=== PATIENT | female | born 1970 | race Caucasian/White ===

== ENCOUNTER 2016-06-17 13:38 | Observation (INO) ==
--- NOTE | 2016-06-17 14:41 | ED.PDOC ---
General ED Provider: Dr. NATALYA LOPEZ JR Chief Complaint: Chest Pain Stated Complaint: states she had 2 episodes today where she had dull midsternal chest pain lasting a few seconds has been out of blood pressure medicine (ziac 2.5)for 1 month. [ End ]98.6 77 18 98% 189/124 1030 2 325mg aspirin Time Seen by Physician: 14:36 Mode of Arrival: Walk-In Information Source: Patient Exam Limitations: No limitations Primary Care Provider: RANULFO GROSS Nursing and Triage Documentation Reviewed and Agree: No Review of Systems - Review Of Systems Constitutional: Reports: Malaise Cardiac: Reports: Chest pain Neurological: Reports: Anxiety All Other Systems: Other Past Medical History - Past Medical History Endocrine: Reports: None Cardiovascular: Reports: Hypertension, Other (MURMUR MILD MR PER PATIENT ON ECHO ) Respiratory: Reports: None Hematological: Reports: None Gastrointestinal: Reports: None Genitourinary: Reports: None Neuro/Psych: Reports: None Musculoskeletal: Reports: None Cancer: Reports: None Last Menstrual Period: now - Surgical History General Surgical History: Reports: Tubal ligation, Cholecystectomy - Family History Family History: Reports: Heart (father hx cabg alive at 71) - Social History Smoking Status: Current every day smoker, Light tobacco smoker Hx Substance Use: No Alcohol Screening: None Physical Exam - Physical Exam Appearance: Well-appearing, Obese Eyes: WINDY, EOMI, Conjunctiva clear ENT: Ears normal, Nose normal, Oropharynx normal Neck: Supple Respiratory: Airway patent, Breath sounds clear, Breath sounds equal, Respirations nonlabored Cardiovascular: RRR, Pulses normal, No rub, No murmur GI/: Soft, Nontender, No masses, Bowel sounds normal, No Organomegaly Musculoskeletal: Normal strength, ROM intact, No edema, No calf tenderness Skin: Warm, Dry, Normal color Neurological: Sensation intact, Motor intact, Reflexes intact, Cranial nerves intact, Alert, Oriented Psychiatric: Affect appropriate, Mood appropriate Interpretation - Radiology Interpretation Radiology Interpretation By: Radiologist Radiology Results: No acute changes Exam Interpreted: CXR - EKG Interpretation Time of EKG #1: 13:50 Rate: Normal Rhythm: Sinus ST Segment: Normal Physician Notification - Case Discussed Physician Notified: CORRINA- SEND TO [facility] Time of Notification: 16:39 (1842 WILL ADMIT IF NOT TRANSFERRED) Critical Care Note - Critical Care Note Total Time (mins): 5 Course - Course Hematology/Chemistry: 06/17/16 14:00 06/17/16 14:00 Orders, Labs, Meds: Lab Review 06/17/16 14:00 WBC 9.70 RBC 4.48 Hgb 13.9 Hct 41.7 MCV 93.1 MCH 31.0 MCHC 33.3 RDW Coeff of Ran 13.6 Plt Count 344 Neutrophils % (Manual) 53.0 Lymphocytes % (Manual) 35.0 Monocytes % (Manual) 12.0 H D-Dimer 0.37 Sodium 139 Potassium 3.9 Chloride 105 Carbon Dioxide 24 Anion Gap 13.9 BUN 18 Creatinine 0.83 Estimated GFR (MDRD) 74.00 BUN/Creatinine Ratio 21.68 Glucose 91 Calcium 9.5 Total Bilirubin 0.34 AST 20 ALT 19 Alkaline Phosphatase 89 Total Creatine Kinase 151 CK-MB (CK-2) 1.9 CK-MB (CK-2) % 1.29931 Troponin I 0.0140 B-Natriuretic Peptide 11 Total Protein 7.6 Albumin 4.0 Globulin 3.6 Albumin/Globulin Ratio 1.11 Orders Category Date Time Status EKG-(ED ONLY) Stat CARDIO 06/17/16 14:08 Completed IV [ED IV/MEDIPORT/POWERPORT] .ONCE EMERGENCY 06/17/16 14:27 Active B-TYPE NATRIURETIC PEPTIDE Stat LAB 06/17/16 14:00 Completed CBC W/ AUTO DIFF Stat LAB 06/17/16 14:00 Completed COMPREHENSIVE METABOLIC PANEL Stat LAB 06/17/16 14:00 Completed CREATINE KINASE Stat LAB 06/17/16 14:00 Completed D-DIMER Stat LAB 06/17/16 14:00 Completed MANUAL DIFFERENTIAL Stat LAB 06/17/16 14:00 Completed TROPONIN I Stat LAB 06/17/16 14:00 Completed 0.9 % Sodium Chloride [Saline Flush] MEDS 06/17/16 14:27 Active 1 syr IVF PRN PRN CHEST, 1V AP ONLY Stat RADS 06/17/16 14:25 Completed Medications Generic Name Dose Route Start Last Admin Trade Name Freq PRN Reason Stop Dose Admin Acetaminophen 650 mg 06/17/16 17:15 Tylenol PO Q4H PRN Mild Pain Bisoprolol Fumarate/HCTZ 1 tab 06/17/16 17:30 Ziac 2.5-6.25 Mg PO DAILY JORDYN Sodium Chloride 1,000 mls @ 75 mls/hr 06/17/16 17:30 06/17/16 18:19 Sodium Chloride IV 75 mls/hr .[id number] JORDYN Administration Sodium Chloride 1 syr 06/17/16 14:27 Saline Flush IVF PRN PRN To flush IV Vital Signs: Temp Pulse Resp BP Pulse Ox 06/17/16 13:44 98.6 F 77 18 189/124 H 98 MARILUZ Risk Score MARILUZ Risk Score: Risk Score Odds of by 30D 0 0.1 (0.1-0.2) 1 0.3 (0.2-0.3) 2 0.4 (0.3-0.5) 3 0.7 (0.6-0.9) 4 1.2 (1.0-1.5) 5 2.2 (1.9-2.6) 6 3.0 (2.5-3.6) 7 4.8 (3.8-6.1) Departure - Departure Time of Disposition: 17:00 Disposition: ADMITTED INPATIENT Discharge Problem: Chest pain Condition: Stable Pt referred to PMD for follow-up: No (ADMIT DR HOUSER(PMD AT [facility]- HIGH VOLUME OF PATIENTS) Allergies/Adverse Reactions: Allergies No Known Allergies Allergy (Verified 06/17/16 13:49) Home Medications: Ambulatory Orders 1 [No Reported Medications] 06/17/16
[2016-06-17 14:43] LABS: HEMATOCRIT 41.7 % (37.0-47.0); HEMOGLOBIN 13.9 g/dl (12.0-16.0); MEAN CORPUSCULAR HGB CONC 33.3 (31.8-35.4); MEAN CORPUSCULAR VOLUME 93.1 fl (81.0-99.0); PLATELET COUNT 344 10^3/uL (140-440); RED BLOOD COUNT 4.48 10^6/ul (4.20-5.40)
[2016-06-17 14:44] LABS: ANISOCYTOSIS NOT PRESENT (NOT PRESENT)
--- NOTE | 2016-06-17 14:55 | DI ---
EXAM: CHEST FRONTAL VIEW HISTORY: Chest pain. COMPARISON: 02/19/2012 FINDINGS: Heart size within normal limits. There is at least mild aortic atherosclerosis. There ar e scattered calcifications suggesting old granulomatous disease. Mild hyperinflation. Lucency of t he lung zones may represent emphysema. No consolidated pneumonia or vascular congestion. No pneumo thorax or pleural fluid. The bones appear intact. IMPRESSION: Cannot exclude chronic obstructive pulmonary disease. Correlate clinically. No acute i nfiltrates identified. There is atherosclerotic disease.]
[2016-06-17 15:11] LABS: ALBUMIN/GLOBULIN RATIO 1.11; ANION GAP 13.9; BILIRUBIN,TOTAL 0.34 mg/dL (0.00-1.20); BUN/CREATININE RATIO 21.68; CALCIUM 9.5 mg/dL (8.2-10.2); CREATININE 0.83 mg/dL (0.60-1.30); POTASSIUM 3.9 mmol/L (3.5-5.10); TOTAL PROTEIN 7.6 g/dL (6.4-8.2); TROPONIN I 0.014 ng/ml (0.0000-0.4000)
[2016-06-17 15:13] LABS: CREATINE KINASE MB 1.9 ng/ml (0.0-3.6)
[2016-06-17] MEDS ORDERED: TYLENOL PO PRN (17:15)
[2016-06-17] MEDS ORDERED: ZIAC 2.5-6.25 MG PO SCH (17:30)
[2016-06-17] MEDS: SODIUM CHLORIDE 1,000 ML IV SCH (18:19)
[2016-06-17 20:25] VITALS: BMI 40.7
[2016-06-17] MEDS: ASPIRIN EC PO SCH (22:07)
[2016-06-17 23:30] LABS: TROPONIN I 0.012 ng/ml (0.0000-0.4000)
[2016-06-18] MEDS: SODIUM CHLORIDE 1,000 ML IV SCH (06:46)
[2016-06-18 07:18] LABS: BASOPHILS % (AUTO) 0.3 % (0.0-3.0); EOSINOPHILS # (AUTO) 0.2 K/ul (0.0-0.7); EOSINOPHILS % (AUTO) 2.6 % (0.0-7.0); HEMATOCRIT 39.9 % (37.0-47.0); HEMOGLOBIN 13.4 g/dl (12.0-16.0); IMMATURE GRANULOCYTE % (AUTO) 0.4 % (0.0-5.0); LYMPHOCYTES % (AUTO) 27.6 (10.0-50.0); MEAN CORPUSCULAR HEMOGLOBIN 30.9 pg (27.0-31.0); MEAN CORPUSCULAR HGB CONC 33.6 (31.8-35.4); MEAN CORPUSCULAR VOLUME 91.9 fl (81.0-99.0); MONOCYTES # (AUTO) 0.6 K/uL (0.4-2.0); NEUTROPHILS # (AUTO) 4.4 K/ul (2.0-6.9); NEUTROPHILS % (AUTO) 61.1; PLATELET COUNT 288 10^3/uL (140-440); RED BLOOD COUNT 4.34 10^6/ul (4.20-5.40); WHITE BLOOD COUNT 7.22 K/ul (4.6-10.2)
[2016-06-18 08:08] LABS: ALBUMIN 3.4 g/dL (3.4-5.0); ALBUMIN/GLOBULIN RATIO 1.17; ANION GAP 13.2; BILIRUBIN,TOTAL 0.58 mg/dL (0.00-1.20); BUN/CREATININE RATIO 17.74; CALCIUM 8.8 mg/dL (8.2-10.2); CHOL/HDL RATIO 3.6 (4.5-5.5); CREATININE 0.62 mg/dL (0.60-1.30); POTASSIUM 4.2 mmol/L (3.5-5.10); TOTAL PROTEIN 6.3 g/dL (6.4-8.2); TROPONIN I 0.016 ng/ml (0.0000-0.4000)
[2016-06-18] MEDS: ASPIRIN EC PO SCH (08:17)
[2016-06-18 14:00] VITALS: BP 110/64; TEMP 97.5
[2016-06-18] MEDS ORDERED: FLUARIX QUAD 2016-2017 SYRINGE IM ONE (14:38)
--- NOTE | 2016-06-18 15:51 | SSS ---
REASON FOR ADMISSION: Midsternal dull, poking pain. SOURCE OF HISTORY: Patient, reliability good. HISTORY OF PRESENT ILLNESS: The patient claimed to have experienced a dull poking pain in the midsternal area about 9:30am in the morning with very short duration and happened only once. The patient had taken two Joshua aspirin after that. She also then had another episode of the same still a very short duration but the dull poking discomfort was repetitive a maximum of five times. This symptoms however was not accompanied by nausea, anorexia, diaphoresis and weakness. The patient was concerned about the problem and presented at the emergency room. The patient workup at the emergency room was unremarkable but emergency room physician felt that she needed to be admitted to the hospital for further observation and testing to rule out any coronary artery disease. The patient at the emergency room was noted to have a blood pressure 189/124 and pulse rate 98. The patient was given a Ziac 2.5-6.25mg at 5:30pm. She also received Tylenol at 5:15pm. PAST HISTORY: The patient had experienced migraines intermittently in the last two years and there some stress since November 2015 and that has more or less dissipated. The patient had tubal ligation, laparoscopic cholecystectomy, Hypertension and heart murmurs. PERSONAL/FAMILY HISTORY/SOCIAL HISTORY: Family history the sister had breast carcinoma, brother had hypertension, father had myocardial infarction x2 and also did undergo cardiac bypass surgery x2. History of diabetes in the maternal side as well as CVA, malignancy, heart disease and thyroid problems. The patient is but she claimed to have problems and now lives alone and recently bought a house. 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 She smokes cigarettes although she claims that she would stop and she had stopped before but regained the habit when she was under stress. She does not drink any alcohol beverages. 4 Para 2, miscarriages 2. PHYSICAL EXAMINATION: GENERAL/APPEARANCE/VITALS: The patient is a 45 year old female admitted to the hospital because of dull poking chest discomfort two hours before admission/ Temperature 97.9, pulse 64, blood pressure 120/86 this was previously 189/124 at the emergency room. This patient received Ziac one dose. Respiratory rate 18 and oxygen saturation 98% at room air. She is 5'5, 245 pounds, BMI 40.8. HEENT: Head is unremarkable. Face is symmetrical and equal with no facial weakness and no tenderness in the frontal maxillary sinus areas to palpation under pressure. Eyes and pupils are equal and reactive to light about 3mm in size. Conjunctive not pale sclarea not icteric. Mouth is unremarkable. Throat no inflammation, no tumors and no exudates. NECK: No masses, no tenderness and no bruit. CHEST: Symmetrical and equal with good expansion. Breast not examined. The patient goes to the clinic in [place]. CVS: Audible and regular with good tones, no murmurs. The patient claimed that she has a murmur however I could be appreciate the murmurs. RS: Breath sounds are heard in both sides, no rales or wheezing. ABDOMEN: Slightly protuberant, pedalis, soft with no remarkable tenderness, no guarding, bowel sounds are active and no masses palpable. EXTERNAL GENITALIA: No examined. Rectal not done. LOWER EXTREMITIES: Symmetrical and equal with no significant pedal edema. Pedal pulses are present in both feet. UPPER EXTREMITIES: Symmetrical and equal. ALLERGIES: No known drug allergies. REVIEW OF SYSTEMS: CONSTITUTIONAL: The patient is alert and oriented and no fever, no chills and no fatigue. SNOUT PULLER: The patient has history of migraine headaches but does not have any at this time. No history of seizures or ataxia. VISUAL: Denies any double vision or blurred vision or transient loss of vision. AUDITORY: Hearing is good. Denies any tinnitus, pain or drainage. RESPIRATORY: Denies any significant cough and no hemoptysis. No shortness of breath CARDIOVASCULAR: Pain in the midsternal area, dull, poking pain very short duration and not accompanied by any other symptoms. GI: Denies any abdominal pain, nausea, anorexia and diarrhea. : Denies any pain, frequency or urgency of urination. MUSCULOSKELETAL: No significant joint pains. ENDOCRINE: Negative INTEGUMENT: Denies any rash, pleuritis. HEMATOLOGY: Denies any prolonged bleeding PSYCHIATRIC: The patient is slightly anxious otherwise responses are normal. MEDICATIONS: None This patient had been on Ziac but had not taken the medication for some time, 2.5-6.25. LABS/EKG'S/X-RAY/ECHO/ABG: The patient while in the hospital remained alert and oriented with no recurrence of the chest pain. The vital signs remained stable and the blood pressure remained normal. The patient's work up during this hospitalization consisted of chest x-ray, no acute infiltrates noted, there is atherosclerotic disease. Stress test negative for ischemia. Echocardiogram normal. Labs: CBC essentially the same and normal. D-dimer normal 0.37, Chemistries normal, CK plus MB and Troponin normal and remained normal on repeat. BNP 11 normal. Lipid panel normal, TSH normal 1.040. ASSESSMENT: 1. Midsternal chest pain, per duration atypical- non cardiac 2. Hypertension now controlled 3. Markedly elevated BMI 4. Chronic tobacco use and abuse, persistent 5. History of chronic and acute situational stress syndrome The patient was examined just before discharge and she is alert,oriented times 4 not dyspneic or tachypneic and cheerful. She had not had any pain during the night and no pain during the course of the exercise. Lungs are clear to auscultation in both sides. Heart is audible and regular with good tones. Neck no masses and no bruit. Abdomen is soft with no remarkable tenderness, no guarding, bowel sounds are active and no masses palpable. Lower extremities no tenderness in the calf muscles. Upper extremities are symmetrical and equal. Vital signs at 1:59pm showed a temperature of 97.5, pulse 74, blood pressure 110 /64, respiratory rate 20 and oxygen saturation is 97 at room air. RECOMMENDATIONS/PLAN: The patient is discharged today and instructed to resume Ziac. She was further instructed to see Dr. Guerin for followup. The patient was advised to slowly increase exercise such as walking. GOOD
--- NOTE | 2016-06-19 14:03 | CONS ---
DATE OF CONSULTATION: 06/18/16 REASON FOR CONSULTATION: Chest pain. HISTORY OF PRESENT ILLNESS: This is a 45-year-old female who experienced two episodes yesterday with "dull" fleeting mid-sternal pain that lasted a few seconds, went away and returned for a few seconds. No nausea. BP elevated at 189/124 on arrival to ER. No diaphoresis or radiation of pain. No shortness of air. She did take ASA 650 mg. REVIEW OF SYSTEMS: CONSTITUTIONAL: Fatigue. No night sweats. No fever or chills. HEENT: Eyes: No visual changes. No eye pain. No eye discharge. ENT: No runny nose. No epistaxis. No sinus pain. No sore throat. No odynophagia. No ear pain. No congestion. RESPIRATORY: Cough for the last 1 to 2 weeks, yellow-brown mucus. No hemoptysis. CARDIOVASCULAR: No angina symptoms. No CHF symptoms. No exertional discomfort. No PND, no orthopnea. No palpitations. Chest pain is atypical, center of the chest. GASTROINTESTINAL: No abdominal pain. No nausea or vomiting. No diarrhea or constipation. No hematemesis. No hematochezia. No melena. GENITOURINARY: No urgency. No frequency. No dysuria. No hematuria. No obstructive symptoms. No discharge. No pain. No significant abnormal bleeding. MUSCULOSKELETAL: No musculoskeletal pain. No joint swelling. NEUROLOGICAL: No headache. No neck pain. No syncope. No seizures. No dizziness. PSYCHIATRIC: Not anxious. No depression. No suicidal thoughts. No homicidal thoughts. The patient states she has had increased stress the last 6 months. SKIN: Warm and dry. ENDOCRINE: No unexplained weight loss. No weight gain. HEMATOLOGIC/LYMPHATIC: No anemia. No purpura. No petechiae. No prolonged or excessive bleeding. No palpable lymph nodes. MEDICATIONS: No current medications. Previously took Ziac but hasn't taken in one month. ALLERGIES: NKDA PAST MEDICAL/SURGICAL HISTORY: 1. Lap anastacia 2. Tubal 3. Hypertension 4. Migraines SOCIAL/PERSONAL/FAMILY HISTORY: Smoker - 1/2 pack per day. Occasional alcohol use - wine. . Adult son lives with her. The patient's PCP is Dr. Raghav Hughes. Family History: Father - [place], CABG; sibling - hypertension; sibling - breast cancer. PHYSICAL EXAMINATION: GENERAL: The patient is awake, alert and oriented times three. VITAL SIGNS: Pulse 68, Respiratory rate 16, BP 114/56, temperature 97, 02 sat 97 % on room air. Weight 245 pounds. BMI 40.8. HEENT: Head normocephalic, atraumatic. Eyes: Extraocular muscles are intact. Pupils are equal, round and reactive to light and accommodation. Ears: No lesions. Nose appeared normal. Throat: No exudate or erythema. NECK: Supple. No JVD, no carotid bruit. No lymphadenopathy or thyromegaly. LUNGS: Decreased breath sounds. Clear to auscultation. Percussion note normal. Chest symmetrical. HEART: S1, S2, no S3. No murmurs. No cyanosis or clubbing. No ascites. Pulses: Dorsalis pedis and posterior tibial pulses +1 both sides. ABDOMEN: Soft. Nontender. Bowel sounds active. No CVA tenderness. No mass felt. EXTREMITIES: No edema. No cyanosis, no clubbing. Full range of motion of all extremities, equal. NEUROLOGIC: No focal deficit. Cranial nerves II through XII are grossly intact. No headache, no double vision or headache. SKIN: Not dry. Intact. Turgor - normal. LYMPHATIC: No palpable lymph nodes/no lymphedema. MUSCULOSKELETAL: Normal joints with no swelling. Muscle tone is normal. ASSESSMENT: 1. CHEST PAIN, SEEMS TO BE NONCARDIAC, 2. RISK FACTORS STRONG FAMILY HISTORY OF HEART DISEASE, SMOKING AND OBESITY, REPEAT PROFILE NORMAL. LABS/X-RAYS/INVESTIGATIONS/INTERIM RELEVANT DATA: EKG - sinus rhythm. CBC within normal limits, CMP within normal limits. Chest x -ray - cannot exclude COPD. BNP 11. CPK, troponin within normal limits times three. TSH 1.040. Triglycerides 93, cholesterol 157, LDL 94, HDL 44, Chol/HDL ratio 3.6. Cardiac markers negative. EKG with sinus rhythm times two unchanged. Repeat profile is normal. PLAN: 1. Echocardiogram - normal, 2D 'M' Mode LV contractility. Normal valves. 2. Stress echocardiogram - negative for ischemia. 3. Counseling for smoking done 4. D. dimer, BNP negative. CK-MB negative. 5. BMI 41 - weight loss diet discussed. 6. Coronary artery disease, risk factors and symptoms discussed. CONDITION: Stable. Thanks for the referral. Will follow. TIME SPENT: 60 minutes MTDD
--- NOTE | 2016-06-19 14:25 | ECHO2D ---
Date of Exam: 06/18/16 Ordering Physician: HOSPITALIST--LEN HOUSER Reason for Echo: CHEST PAIN M-Mode Normal Adult Results LV Dimensions Normal Adult Results AoV Opening excursions >1.6 >1.6 LVEDD-base- 3.5-5.8 4.8 Ao root dimensions 2.0-3.7 3.3 LVESD-base- 3.1-4.6 L. Atrium dimensions 1.9-3.8 4.0 Post. Wall thickness 0.8-1.1 1.0 IV septum (thickness) 0.7-1.2 1.1 Post. Wall excursion 0.72-1.3 NORMAL Septal motion NORMAL Systolic motion R. Ventricular cavity 1.5-2.0 NORMAL LVEF 60% 55% Paradoxical septal wall motion NORMAL 2-D : 2-D M Mode Echocardiogram was performed using apical four chamber and left parasternal long and short axis views. Mitral, tricuspid and aortic valves appear to be normal. Contractility of the left ventricle seems to be normal, so is the cavity size. Left atrial cavity size and aortic root appear to be normal. There is no pericardial effusion. There is no thrombus noted in the left ventricular or left aortic cavity. No mitral valve prolapse noted. M-MODE: MV: NORMAL AV: NORMAL TV: NORMAL PV: CHAMBER SIZE: NORMAL WALL MOTION: NORMAL PERICARDIUM: NORMAL INTERPRETATION: 1. NORMAL 2 "D" "M" MODE ECHO MTDD
--- NOTE | 2016-06-19 14:32 | STRESSECHO ---
Date of Test: 06/18/16 Reason for Exam: CHEST PAIN, MURMUR, HTN Ordering Physician: HOSPITALIST--LEN HOUSER Physical Findings: S1, S2, NO S3 Resting EKG: SINUS RHYTHM/NO ACUTE CHANGES Target Heart Rate: 147/173 STAGE MPH/GRADE HEART RATE BPM BLOOD PRESSURE mmhg RHYTHM S-T SEGMENT +/- UP DOWN SYMPTOMS,COMMENTS At Rest 80 124/82 SR X NONE 1 1.7/10% 120 SR X NONE 2 2.5/12% 3 3.4/14% 4 4.2/16% 5 5.0/18% Immediately after 148 176/60 SR X FATIGUE Durations of Exercise: 5:07 Maximum Heart Rate Reached: 148 Reason for Termination: FATIGUE INTERPRETATION: 98% OXYGEN SATURATION WITH EXERCISE ON ROOM AIR METS 7.0 1. NO EVIDENCE OF ISCHEMIA BY ST-T WAVE 2. NO CHEST PAIN OR CHEST DISCOMFORT 3. BLOOD PRESSURE RESPONSE NORMAL 4. NO ARRHYTHMIAS NORMAL LEFT VENTRICULAR CONTRACTILITY RESTING AND POST EXERCISE MTDD
--- NOTE | 2016-06-19 14:35 | ECHOSTRESS ---
Date of Exam: 06/18/16 Ordering Physician: HOSPITALIST-LEN HOUSER Reason for Echo: CHEST PAIN, STRESS TEST--NO ISCHEMIA M-Mode Normal Adult Results LV Dimensions Normal Adult Results AoV Opening excursions >1.6 LVEDD-base- 3.5-5.8 Ao root dimensions 2.0-3.7 LVESD-base- 3.1-4.6 L. Atrium dimensions 1.9-3.8 Post. Wall thickness 0.8-1.1 IV septum (thickness) 0.7-1.2 Post. Wall excursion 0.72-1.3 Septal motion Systolic motion R. Ventricular cavity 1.5-2.0 LVEF 60% Paradoxical septal wall motion 2-D: NORMAL LEFT VENTRICULAR CONTRACTILITY--RESTING AND POST EXERCISE M-MODE: MV: AV: TV: PV: CHAMBER SIZE: WALL MOTION: NORMAL LEFT VENTRICULAR CONTRACTILITY--RESTING AND POST EXERCISE PERICARDIUM: INTERPRETATION: 1. NORMAL LEFT VENTRICULAR CONTRACTILITY--RESTING AND POST EXERCISE MTDD
== END 2016-06-18 15:09 | disposition home or self-care (01) ==
LOC: ED 13:38 → INTOOBSV 17:13 → MEDSURG B 17:13
PROVIDERS: ADMIT General Practice; ATTEND General Practice
DX: R07.89 Other chest pain (principal); I10 Essential (primary) hypertension; R63.8 Other symptoms and signs concerning food and fluid intake; F17.210 Nicotine dependence, cigarettes, uncomplicated; F43.0 Acute stress reaction; Z68.41 Body mass index [BMI] 40.0-44.9, adult; Z86.59 Personal history of other mental and behavioral disorders
CPT/HCPCS: 36415; 80053; 80061; 82550; 82553; 83525; 83880; 84436; 84443; 84484; 85007; 85025; 85379; 93005; 93010; 96360; 96361; 99217; 99219; 99284

== ENCOUNTER 2017-07-14 14:18 | Outpatient (CLI) | END 2017-07-14 14:19 | disposition home or self-care (01) | LOC: CAR 14:18 | PROVIDERS: ATTEND Nurse Practitioner Family | DX: I10 Essential (primary) hypertension (principal); E66.9 Obesity, unspecified | CPT/HCPCS: 36415; 80053; 80061; 84439; 84443; 85025; 93005; 93010 ==

== ENCOUNTER 2017-09-02 09:21 | Outpatient (CLI) ==
--- NOTE | 2017-09-02 10:02 | DI ---
EXAM: Radiographs, left knee HISTORY: Left knee pain. COMPARISON: None available. TECHNIQUE: Four views. FINDINGS: Bone mineralization is decreased. There is no fracture or dislocation. There is moderate medial compartment joint space narrowing with associated marginal osteophyte formation. Moderate pa tellofemoral compartment marginal osteophyte formation noted. No erosive changes are seen. No focal soft tissue abnormality is seen. IMPRESSION: Moderate osteoarthritis.
== END 2017-09-02 09:22 | disposition home or self-care (01) ==
LOC: RAD 09:21
PROVIDERS: ATTEND Nurse Practitioner Family
DX: M25.562 Pain in left knee (principal); M25.462 Effusion, left knee